=== PATIENT | male | born 1995 | race Two or more races ===

== ENCOUNTER 2017-04-03 11:47 | Emergency (ER) | payer OTHER ==
[2017-04-03] MEDS ORDERED: Ondansetron 4 MG/2 ML SDV IVPUSH ONE (12:05)
[2017-04-03] MEDS ORDERED: Sodium Chloride 0.9% 1,000 ML IV ONE ×2 (12:05→13:17)
[2017-04-03] MEDS ORDERED: Ketorolac 30 MG/ML SDV IVPUSH ONE (12:05)
--- NOTE | 2017-04-03 12:11 | EDM.PDOC ---
ED HPI GENERAL MEDICAL PROBLEM - General Chief Complaint: General Stated Complaint: FEVER Time Seen by Provider: 04/03/17 11:57 Source of Information: Reports: Patient, Family History Limitations: Reports: No Limitations - History of Present Illness INITIAL COMMENTS - FREE TEXT/NARRATIVE: HISTORY AND PHYSICAL: History of present illness: Patient is a 21-year-old male who presents to the emergency room with complaints of fever, cough, generalized body aches, nausea, headache 4 days. She reports that approximately 4 days ago he started to have generalized body aches and stiff neck, the neck stiffness has resolved at this time but started to have fever and cough with some nausea. Mom is concerned of "Ina syndrome" because of some over the counter medications he took two days ago. Mom reports after taking the medications "he became worse it seemed". Patient took Tylenol 30 minutes prior to arrival with a temperature of 100.2. Denies any chest pain, shortness of breath, abdominal pain, flank pain or dysuria. Denies any recent travel. Immunizations are up-to-date. Has not received a flu vaccine for the 2017/2017 season. Review of systems: As per history of present illness and below otherwise all systems reviewed and negative. Past medical history: As per history of present illness and as reviewed below otherwise noncontributory. Surgical history: As per history of present illness and as reviewed below otherwise noncontributory. Social history: No reported history of drug or alcohol abuse. Family history: As per history of present illness and as reviewed below otherwise noncontributory. Physical exam: Gen.: Well-developed and well-nourished 21-year-old male. Able to speak in full sentences without shortness of breath. Alert and oriented. HEENT: Atraumatic, normocephalic, pupils reactive, negative for conjunctival pallor or scleral icterus, mucous membranes moist, throat clear, neck supple, nontender, trachea midline. Lungs: Clear to auscultation, breath sounds equal bilaterally, chest nontender. Heart: S1S2, regular rate and rhythm, tachycardia of 110. Abdomen: Soft, nondistended, nontender. Negative for masses or hepatosplenomegaly. Negative for costovertebral tenderness. Pelvis: Stable nontender. Genitourinary: Deferred. Rectal: Deferred. Extremities: Atraumatic, moves all extremities per self, negative for cords or calf pain. Neurovascular unremarkable. Skin: Skin is warm to touch. No overt lesions, rashes, or masses noted. Neuro: Awake, alert, oriented. Cranial nerves II through XII unremarkable. Cerebellum unremarkable. Motor and sensory unremarkable throughout. Exam nonfocal. Upon performing my physical examination, there was no nuchal rigidity while evaluating his neck pain. After patient received his IV fluids, Toradol and Zofran he states he feels much improved. I informed the patient and family members that he does have mononucleosis. Instructed the patient that he needs to be careful to not injure his abdomen, spleen, and he needs to follow-up with a PCP with his LFTs in the clinic in the next couple days. Instructed to use acetaminophen to control fever. We'll give a prescription for Zofran to ensure he is staying hydrated and encouraged patient to drink plenty of fluids. Instructed patient to avoid any aspirin at this time. Patient and parents voiced understanding and are agreeable to plan of care. Denies any further questions at this time. Diagnostics: CBC, CMP, 2 view chest x-ray, influenza Therapeutics: IV fluid, Toradol, Zofran Impression: Mononucleosis Plan: 1. Supportive care at this time. This includes drinking plenty of fluids to ensure hydration. Zofran has been prescribed to you to prevent nausea. Please take this medication as directed. He may use Tylenol and ibuprofen over-the- counter for fever management. Please be sure that you are doing good handwashing. He will need a new toothbrush. 2. You need to follow-up with your primary care provider in the next 1-2 days to reevaluate your liver function tests. 3. Return to the ED as needed as discussed Definitive disposition and diagnosis as appropriate pending reevaluation and review of above. Onset: Today body Pain Score (Numeric/FACES): 6 - Related Data Allergies Allergy/AdvReac Type Severity Reaction Status Date / Time No Known Allergies Allergy Verified 04/03/17 11:51 Home Meds: Home Meds . [No Known Home Meds] 04/03/17 [History] Past Medical History - Past Health History Medical/Surgical History: Denies Medical/Surgical History Social & Family History - Family History Family Medical History: Noncontributory - Tobacco Use Smoking Status *Q: Never Smoker - Recreational Drug Use Recreational Drug Use: No ED ROS GENERAL - Review of Systems Review Of Systems: ROS reveals no pertinent complaints other than HPI. ED EXAM, GENERAL - Physical Exam Exam: See Below (See dictation) Course - Vital Signs Last Recorded V/S: Last Vital Signs Temp 38.2 C H 04/03/17 11:47 Pulse 111 H 04/03/17 11:47 Resp 20 04/03/17 11:47 BP 104/54 L 04/03/17 11:47 Pulse Ox 100 04/03/17 11:47 - Orders/Labs/Meds Orders: Active Orders 24 hr Category Date Time Status Sodium Chloride 0.9% [Normal Saline] 1,000 ml Med 04/03/17 13:17 Active IV STAT Medication Orders Sodium Chloride (Normal Saline) 1,000 mls @ 999 mls/hr IV STAT ONE Stop: 04/03/17 14:17 Last Admin: 04/03/17 13:39 Dose: 999 mls/hr Labs: Laboratory Tests 04/03/17 04/03/17 04/03/17 Range/Units 12:00 12:00 12:00 WBC 11.76 H (4.0-11.0) K/uL RBC 5.25 (4.50-5.90) M/uL Hgb 14.8 (13.0-17.0) g/dL Hct 43.1 (38.0-50.0) % MCV 82.1 (80.0-98.0) fL MCH 28.2 (27.0-32.0) pg MCHC 34.3 (31.0-37.0) g/dL RDW Std Deviation 39.2 (28.0-62.0) fl RDW Coeff of Candice 13 (11.0-15.0) % Plt Count 178 (150-400) K/uL MPV 8.80 (7.40-12.00) fL Add Manual Diff YES Neutrophils % (Manual) 22 L (48.0-80.0) % Band Neutrophils % 13 % Lymphocytes % (Manual) 48 H (16.0-40.0) % Monocytes % (Manual) 16 H (0.0-15.0) % Basophils % (Manual) 1 (0.0-1.5) % Nucleated RBC % 0.0 /100WBC Absolute Seg Neuts 2.6 Band Neutrophils # 1.5 Lymphocytes # (Manual) 5.6 Monocytes # (Manual) 1.9 Basophils # (Manual) 0 Nucleated RBCs # 0 K/uL Sodium 138 (136-146) mmol/L Potassium 3.8 (3.5-5.1) mmol/L Chloride 106 (98-110) mmol/L Carbon Dioxide 19 L (21-31) mmol/L BUN 7 (6.0-23.0) mg/dL Creatinine 0.8 (0.6-1.5) mg/dL Est Cr Clr Drug Dosing TNP Estimated GFR (MDRD) > 60.0 ml/min Glucose 101 (60-110) mg/dL Calcium 9.3 (8.8-10.8) mg/dL Total Bilirubin 0.8 (0.1-1.5) mg/dL AST 98 H (5-40) IU/L ALT 152 H (8-54) IU/L Alkaline Phosphatase 99 L (125-750) Total Protein 7.4 (6.0-8.0) g/dL Albumin 3.7 (3.5-5.0) g/dL Globulin 3.7 H (2.0-3.5) g/dL Albumin/Globulin Ratio 1.0 L (1.3-2.8) Monoscreen POSITIVE (NEG) Meds: Medications Generic Name Dose Route Start Last Admin Trade Name Freq PRN Reason Stop Dose Admin Sodium Chloride 1,000 mls @ 999 mls/hr 04/03/17 13:17 04/03/17 13:39 Normal Saline IV 04/03/17 14:17 999 mls/hr STAT ONE Administration Discontinued Medications Generic Name Dose Route Start Last Admin Trade Name Freq PRN Reason Stop Dose Admin Sodium Chloride 1,000 mls @ 999 mls/hr 04/03/17 12:05 04/03/17 12:11 Normal Saline IV 04/03/17 13:05 999 mls/hr STAT ONE Administration Ketorolac Tromethamine 30 mg 04/03/17 12:05 04/03/17 12:12 Toradol IVPUSH 04/03/17 12:06 30 mg ONETIME ONE Administration Ondansetron HCl 4 mg 04/03/17 12:05 04/03/17 12:12 Zofran IVPUSH 04/03/17 12:06 4 mg ONETIME ONE Administration Departure - Departure Time of Disposition: 13:52 Disposition: Home, Self-Care 01 Condition: Good Clinical Impression: Mononucleosis - Discharge Information Referrals: PCP,None [Primary Care Provider] - Forms: ED Department Discharge Additional Instructions: My general discharge The following information is given to patients seen in the emergency department who are being discharged to home. This information is to outline your options for follow-up care. We provide all patients seen in our emergency department with a follow-up referral. The need for follow-up, as well as the timing and circumstances, are variable depending upon the specifics of your emergency department visit. If you don't have a primary care physician on staff, we will provide you with a referral. We always advise you to contact your personal physician following an emergency department visit to inform them of the circumstance of the visit and for follow-up with them and/or the need for any referrals to a consulting specialist. The emergency department will also refer you to a specialist when appropriate. This referral assures that you have the opportunity for follow-up care with a specialist. All of these measure are taken in an effort to provide you with optimal care, which includes your follow-up. Under all circumstances we always encourage you to contact your private physician who remains a resource for coordinating your care. When calling for follow-up care, please make the office aware that this follow-up is from your recent emergency room visit. If for any reason you are refused follow-up, please contact the [facility] Emergency Department at and asked to speak to the emergency department charge nurse. [facility] [address] [place] [id number] 1. Supportive care at this time. This includes drinking plenty of fluids to ensure hydration. Zofran has been prescribed to you to prevent nausea. Please take this medication as directed. He may use Tylenol and ibuprofen over-the- counter for fever management. Please be sure that you are doing good handwashing. He will need a new toothbrush. 2. You need to follow-up with your primary care provider in the next 1-2 days to reevaluate your liver function tests. 3. Return to the ED as needed as discussed - My Orders Last 24 Hours: My Active Orders 04/03/17 13:17 Sodium Chloride 0.9% [Normal Saline] 1,000 ml IV STAT - Assessment/Plan Last 24 Hours: My Active Orders 04/03/17 13:17 Sodium Chloride 0.9% [Normal Saline] 1,000 ml IV STAT
--- NOTE | 2017-04-03 12:31 | CR ---
EXAMINATION: Two-view chest (PA and Lateral views). HISTORY: Cough. FINDINGS: The trachea is midline. The cardiomediastinal silhouette is within normal limits. No pulmonary infilt rates, effusions or pneumothorax. Osseous structures appear unremarkable. IMPRESSION: No acute cardiopulmonary process.
[2017-04-03 12:39] LABS: CHLORIDE,CL 106 mmol/L (98-110); SODIUM,NA 138 mmol/L (136-146)
[2017-04-03 14:19] VITALS: BP 99/54
== END 2017-04-03 14:23 | disposition home or self-care (01) ==
LOC: MW.ED 11:47
DX: B27.90 Infectious mononucleosis, unspecified without complication (principal)
CPT/HCPCS: 36415; 71020; 80053; 85025; 86308; 87804; 96361; 96374; 96375; 99283; J1885; J2405; J7040

== ENCOUNTER 2017-07-15 08:16 | Emergency (ER) | payer OTHER ==
[2017-07-15] MEDS ORDERED: Sodium Chloride 0.9% 1,000 ML IV ONE (08:38)
[2017-07-15] MEDS ORDERED: Ondansetron 4 MG/2 ML SDV IVPUSH ONE (08:38)
--- NOTE | 2017-07-15 08:40 | EDM.PDOC ---
ED HPI GENERAL MEDICAL PROBLEM - General Chief Complaint: Fever Stated Complaint: FEVER,NAUSEA Time Seen by Provider: 07/15/17 08:24 - History of Present Illness INITIAL COMMENTS - FREE TEXT/NARRATIVE: HISTORY AND PHYSICAL: History of present illness: Patient is a 21-year-old male presents with concern of nausea and vomiting and tactile fever 1 day his mother and other family members have had similar illness he has had influenza immunization this year he denies abdominal pain diarrhea chest pain shortness of breath or other concern Review of systems: As per history of present illness and below otherwise all systems reviewed and negative. Past medical history: As per history of present illness and as reviewed below otherwise noncontributory. Surgical history: As per history of present illness and as reviewed below otherwise noncontributory. Social history: No reported history of drug or alcohol abuse. Family history: As per history of present illness and as reviewed below otherwise noncontributory. Physical exam: HEENT: Atraumatic, normocephalic, pupils reactive, negative for conjunctival pallor or scleral icterus, mucous membranes dry, throat clear, neck supple, nontender, trachea midline. Lungs: Clear to auscultation, breath sounds equal bilaterally, chest nontender. Heart: S1S2, regular, negative for clicks, rubs, or JVD. Abdomen: Soft, nondistended, nontender. Negative for masses or hepatosplenomegaly. Negative for costovertebral tenderness. Pelvis: Stable nontender. Genitourinary: Deferred. Rectal: Deferred. Extremities: Atraumatic, negative for cords or calf pain. Neurovascular unremarkable. Neuro: Awake, alert, oriented. Cranial nerves II through XII unremarkable. Cerebellum unremarkable. Motor and sensory unremarkable throughout. Exam nonfocal. Diagnostics: CBC CMP and lipase influenza screen Therapeutics: Saline 1 L bolus Zofran 4 mg IV Impression: #1 vomiting with dehydration #2 viral syndrome Definitive disposition and diagnosis as appropriate pending reevaluation and review of above. - Related Data Allergies Allergy/AdvReac Type Severity Reaction Status Date / Time No Known Allergies Allergy Verified 07/15/17 08:32 Home Meds: Home Meds . [No Known Home Meds] 04/03/17 [History] Past Medical History - Past Health History Medical/Surgical History: Denies Medical/Surgical History Social & Family History - Family History Family Medical History: Noncontributory - Tobacco Use Smoking Status *Q: Never Smoker Second Hand Smoke Exposure: No - Recreational Drug Use Recreational Drug Use: No ED ROS GENERAL - Review of Systems Review Of Systems: ROS reveals no pertinent complaints other than HPI. ED EXAM, GENERAL - Physical Exam Exam: See Below (See dictation) Course - Vital Signs Last Recorded V/S: Last Vital Signs Temp 40.4 C H 07/15/17 09:41 Pulse 119 H 07/15/17 08:28 Resp 28 H 07/15/17 08:28 BP 98/60 07/15/17 08:28 Pulse Ox 98 07/15/17 08:28 - Orders/Labs/Meds Labs: Laboratory Tests 07/15/17 07/15/17 Range/Units 08:55 08:55 WBC 5.95 (4.0-11.0) K/uL RBC 5.34 (4.50-5.90) M/uL Hgb 14.9 (13.0-17.0) g/dL Hct 43.8 (38.0-50.0) % MCV 82.0 (80.0-98.0) fL MCH 27.9 (27.0-32.0) pg MCHC 34.0 (31.0-37.0) g/dL RDW Std Deviation 40.8 (28.0-62.0) fl RDW Coeff of Candice 14 (11.0-15.0) % Plt Count 173 (150-400) K/uL MPV 9.50 (7.40-12.00) fL Neut % (Auto) 76.1 (48.0-80.0) % Lymph % (Auto) 15.0 L (16.0-40.0) % Archer % (Auto) 8.6 (0.0-15.0) % Eos % (Auto) 0.0 (0.0-7.0) % Baso % (Auto) 0.3 (0.0-1.5) % Neut # (Auto) 4.5 (1.4-5.7) K/uL Lymph # (Auto) 0.9 (0.6-2.4) K/uL Archer # (Auto) 0.5 (0.0-0.8) K/uL Eos # (Auto) 0.0 (0.0-0.7) K/uL Baso # (Auto) 0.0 (0.0-0.1) K/uL Nucleated RBC % 0.0 /100WBC Nucleated RBCs # 0 K/uL Sodium 138 (136-146) mmol/L Potassium 3.8 (3.5-5.1) mmol/L Chloride 105 (98-110) mmol/L Carbon Dioxide 16 L (21-31) mmol/L BUN 11 (6.0-23.0) mg/dL Creatinine 1.0 (0.6-1.5) mg/dL Est Cr Clr Drug Dosing TNP Estimated GFR (MDRD) > 60.0 ml/min Glucose 113 H (60-110) mg/dL Calcium 9.9 (8.8-10.8) mg/dL Total Bilirubin 0.9 (0.1-1.5) mg/dL AST 20 (5-40) IU/L ALT 19 (8-54) IU/L Alkaline Phosphatase 64 L (125-750) Total Protein 7.8 (6.0-8.0) g/dL Albumin 4.8 (3.5-5.0) g/dL Globulin 3.0 (2.0-3.5) g/dL Albumin/Globulin Ratio 1.6 (1.3-2.8) Lipase 16 (7-80) U/L Meds: Medications Discontinued Medications Generic Name Dose Route Start Last Admin Trade Name Efrenq PRN Reason Stop Dose Admin Acetaminophen 1,000 mg 07/15/17 09:37 07/15/17 09:41 Tylenol Extra Strength PO 07/15/17 09:38 1,000 mg ONETIME ONE Administration Sodium Chloride 1,000 mls @ 999 mls/hr 07/15/17 08:38 07/15/17 08:56 Normal Saline IV 07/15/17 09:38 999 mls/hr STAT ONE Administration Ondansetron HCl 4 mg 07/15/17 08:38 07/15/17 08:56 Zofran IVPUSH 07/15/17 08:39 4 mg ONETIME ONE Administration Departure - Departure Time of Disposition: 10:20 Disposition: Home, Self-Care 01 Condition: Good Clinical Impression: Influenza - Discharge Information Referrals: PCP,None [Primary Care Provider] - Forms: ED Department Discharge Additional Instructions: The following information is given to patients seen in the emergency department who are being discharged to home. This information is to outline your options for follow-up care. We provide all patients seen in our emergency department with a follow-up referral. The need for follow-up, as well as the timing and circumstances, are variable depending upon the specifics of your emergency department visit. If you don't have a primary care physician on staff, we will provide you with a referral. We always advise you to contact your personal physician following an emergency department visit to inform them of the circumstance of the visit and for follow-up with them and/or the need for any referrals to a consulting specialist. The emergency department will also refer you to a specialist when appropriate. This referral assures that you have the opportunity for followup care with a specialist. All of these measure are taken in an effort to provide you with optimal care, which includes your followup. Under all circumstances we always encourage you to contact your private physician who remains a resource for coordinating your care. When calling for followup care, please make the office aware that this follow-up is from your recent emergency room visit. If for any reason you are refused follow-up, please contact the [facility] emergency department at and asked to speak to the emergency department charge nurse. [facility] [address] [place] [phone] Follow-up primary medical doctor and/or clinic above 24-48 hours as needed as discussed Zofran as prescribed return as needed as discussed
[2017-07-15 09:28] LABS: CHLORIDE,CL 105 mmol/L (98-110); SODIUM,NA 138 mmol/L (136-146)
[2017-07-15] MEDS ORDERED: Acetaminophen 500 MG Tab PO ONE (09:37)
[2017-07-15 11:04] VITALS: BP 74/47
== END 2017-07-15 10:38 | disposition home or self-care (01) ==
LOC: MW.ED 08:16
DX: J10.1 Influenza due to other identified influenza virus with other respiratory manifestations (principal); E86.0 Dehydration; B34.9 Viral infection, unspecified
CPT/HCPCS: 36415; 80053; 83690; 85025; 87804; 96361; 96374; 99284; A9270; J2405; J7040; 99283